=== PATIENT | female | born 1975 | race Caucasian/White ===

== ENCOUNTER → 2016-04-08 | Outpatient (CLI) | payer OTHER ==
--- NOTE | 2016-04-08 09:33 | MA ---
Bilateral Screening Digital Mammograms with iCAD Clinical Indications: Routine screening mammograms. Technique: Standard digital cephalocaudal and mediolateral oblique projections were obtained. An add itional oblique lateral views performed of the right breast. This examination was processed by the [employer] computer-aided detection system. Comparison: None. Breast Parenchymal Density:C Findings: There are no masses, no suspicious calcifications, and no secondary signs of malignancy. Impression: Negative. Recommendation: Routine screening mammograms in one year. The patients information is entered into a reminder system with a target due date for her next mammog danitza. Negative mammography should not preclude additional workup of a clinically suspicious finding.
== END ==
LOC: BMCIMAGING 07:48
DX: Z12.31 Encounter for screening mammogram for malignant neoplasm of breast (principal)
CPT/HCPCS: G0202

== ENCOUNTER → 2017-06-10 | Outpatient (CLI) | payer OTHER | LOC: BMCIMAGING 15:14 | DX: Z12.31 Encounter for screening mammogram for malignant neoplasm of breast (principal) ==

== ENCOUNTER → 2018-06-24 | Outpatient (CLI) | payer OTHER | LOC: BMCIMAGING 08:50 | DX: Z12.31 Encounter for screening mammogram for malignant neoplasm of breast (principal) ==